=== PATIENT | female | born 1990 | race Caucasian/White ===

== ENCOUNTER 2017-08-15 17:00 | Emergency (ER) | payer BC ==
[2017-08-15 17:07] VITALS: BP 111/77; PULSE 110; RESP 16; TEMP 98.8; O2SAT 97
[2017-08-15] MEDS ORDERED: ACETAMINOPHEN 500 MG CPLT PO ONE (18:30)
--- NOTE | 2017-08-15 19:48 | PD ---
HPI Chief Complaint: Cold / Flu Symptoms Time Seen by Provider: 18:03 Travel History International Travel<30 days: No Contact w/Intl Traveler<30days: No Traveled to known affect area: No History of Present Illness HPI This is a 27-year-old female with fever, nasal congestion, body aches 2-3 days. She is 33 weeks . Max temp of 101. Symptoms severity is moderate. Symptoms improved with OTC Tylenol. She reports normal movement of the fetus. He denies headache, neck pain, chest pain, shortness of breath, abdominal pain, dysuria or vaginal discharge. [facility] Past Medical History Asthma: Yes ?: LMP: 12/2016 ? 33 weeks Social History Alcohol Use: No Tobacco Use: No Substance Use: No Allergies-Medications (Allergen,Severity, Reaction): Coded Allergies: tree nut (Verified Allergy, Severe, Anaphylaxis, 08/15/17) latex (Verified Allergy, Intermediate, Hives, 08/15/17) Reported Meds & Prescriptions Reported Meds & Active Scripts Active No Active Prescriptions or Reported Medications Review of Systems Except as stated in HPI: all other systems reviewed are Neg Physical Exam Narrative GENERAL: Alert and well-appearing 27-year-old female. SKIN: Warm and dry. No rash HEAD: Normocephalic. EYES: No injection or drainage. Ears/nose/throat: No TM erythema. Clear nasal discharge. Mild pharyngeal erythema without tonsillar hypertrophy or exudate. NECK: Supple. No meningismus CARDIOVASCULAR: Regular rate and rhythm without murmurs, gallops, or rubs. RESPIRATORY: Breath sounds equal bilaterally. No accessory muscle use. GASTROINTESTINAL: Abdomen soft, non-tender. Abdomen appropriate for 33 weeks gestation. heart tones 120-140. MUSCULOSKELETAL: No cyanosis, or edema. BACK: No CVA tenderness. Data Data Last Documented VS Vital Signs Date Time Temp Pulse Resp B/P (MAP) Pulse Ox O2 Delivery O2 Flow Rate FiO2 08/15/17 19:52 97.2 08/15/17 17:07 110 16 111/77 (88) 97 Orders Orders Influenzae A/B Antigen (08/15/17 18:29) Acetaminophen (Tylenol) (08/15/17 18:30) Heart Tones (08/15/17 18:29) MDM Medical Decision Making Medical Screen Exam Complete: Yes Emergency Medical Condition: Yes Differential Diagnosis Influenza, bronchitis, pneumonia Narrative Course This is a 27-year-old female here with flulike illness. She is nontoxic appearing. She is tolerating oral fluids. Influenza screening is negative. Patient is outside of the window for treatment with Tamiflu. She is well- appearing. She is reporting symptom improvement after Tylenol. She was instructed to continue with Tylenol and oral hydration. Follow-up with primary doctor or [facility] Diagnosis Primary Impression: Influenza-like illness Referrals: Primary Care Physician Additional Instructions: Tylenol every 6 hours for fever. Stay well hydrated by drinking plenty of fluids such as water and Gatorade. Return if he has new worsening symptoms. Scripts No Active Prescriptions or Reported Meds Disposition: 01 DISCHARGE HOME Condition: Stable Erna Preston Aug 15, 2017 19:48
[2017-08-15 19:52] VITALS: TEMP 97.2
== END 2017-08-15 20:25 | disposition home or self-care (01) ==
LOC: PHEFT 17:00
DX: R50.9 Fever, unspecified (principal); R09.81 Nasal congestion; R52 Pain, unspecified; J45.909 Unspecified asthma, uncomplicated; Z3A.33 33 weeks gestation of pregnancy
CPT/HCPCS: 87804; 99283